=== PATIENT | female | born 1985 | race Caucasian/White ===

== ENCOUNTER 2018-03-07 12:53 | Emergency (ER) | payer MEDICAID ==
[~2018-03-07 12:53] MED LIST: DOXY-1 PO; HYDR-385 PO; HYDR-4309 PO; MECL25TA9 PO; METR-160 PO; ONDA4TAB PO; PANT40TA65 PO; PREN-123 PO; PROM-110 PO; SUCR1TAB85 PO
--- NOTE | 2018-03-07 13:02 | ER Report ---
History and Physical Time Seen By MD: 12:56 HPI/ROS CHIEF COMPLAINT: ear ache, muscle aches HISTORY OF PRESENT ILLNESS: This is a 32 year old female. She is having severe ear ache. Started yesterday. Has a sore throat as well. Muscle aches and pains. No shortness of breath, but has had some cough. Fevers and chills. Not short of breath. No chest pain. Having some nausea and an episode of vomiting. No problem with bowel and bladder. Allergies: Coded Allergies: Penicillins (Verified Allergy, Unknown, HIVES, 01/25/17) Home Meds Active Scripts Ondansetron (ZOFRAN ODT) 4 Mg Tab.rapdis, 4 MG PO Q6H Y for NAUSEA/VOMITING, # 20 TAB.KELLEY 0 Refills Prov:UMER VILLEGAS MD 03/07/18 Ketorolac Tromethamine (KETOROLAC TROMETHAMINE) 10 Mg Tab, 10 MG PO Q6H Y for PAIN, #12 TAB 0 Refills Prov:UMER VILLEGAS MD 03/07/18 Azithromycin (ZITHROMAX) 250 Mg Tablet, 0 PO QDAY, #6 TAB 0 Refills Take 2 tablets today, then one daily for 4 more days. Prov:UMER VILLEGAS MD 03/07/18 Discontinued Scripts Metronidazole (METRONIDAZOLE) 500 Mg Tablet, 500 MG PO BID, #14 TAB Prov:FELICIA OLSEN PA-C 01/25/17 Doxycycline Hyclate (VIBRAMYCIN) 100 Mg Capsule, 100 MG PO BID, #20 CAPSULE Prov:FELICIA OLSEN PA-C 01/25/17 Hydrocodone Bit/Acetaminophen (HYDROCODON-ACETAMINOPHEN 5-325) 1 Each Tablet, 1- 2 EACH PO Q6H for PAIN, #20 TAB Prov:FELICIA OLSEN PA-C 01/25/17 Reviewed Nurses Notes: Yes Hx Smoking: Yes (1/2PPD) Smoking Status: Current: Some Days Smoker Exposure to Second Hand Smoke?: Yes Hx Substance Use Disorder: No Hx Alcohol Use: No Constitutional Vital Sign - Last 24 Hours 03/07/18 03/07/18 12:57 14:00 Temp 99.6 98.9 Pulse 89 Resp 18 16 B/P (MAP) 112/68 104/74 (84) Pulse Ox 96 96 O2 Delivery Room Air Room Air Physical Exam General Appearance: The patient is alert. No acute distress. Eyes: Pupils are equal, round. No pallor, injection or icterus. ENT: Mucous membranes are moist. Normal oral mucosa. Posterior oropharynx with erythema and exudates. TM red and bulging on the left. Red and injection on the right TM without bulging. Neck: Supple and non tender. Respiratory: Lungs are clear to auscultation. Cardiovascular: Regular rate and rhythm. No murmurs, gallops or rubs. Normal capillary refill. Gastrointestinal: Soft and non-tender. Nondistended. Normal active bowel sounds. Neurological: Alert and oriented x3. Skin: Warm and dry. No rashes. DIFFERENTIAL DIAGNOSIS: After history and physical exam, differential diagnosis was considered for a patient with earache and sore throat, seems to be coming from the left ear. Testing for strep and will give some Zofran and Toradol. Medical Decision Making Data Points Laboratory Hematology Test 03/07/18 12:55 Group A Streptococcus Screen Negative (NEGATIVE) Chemistry Test 03/07/18 12:55 Group A Streptococcus Screen Negative (NEGATIVE) ED Course/Re-evaluation ED Course Zofran helped nausea, Toradol helped pain. Azithromycin prescribed. Decision to Disposition Date: Mar 07, 2018 Decision to Disposition Time: 14:01 Depart Departure Latest Vital Signs Vital Signs Date Time Temp Pulse Resp B/P (MAP) Pulse Ox O2 Delivery O2 Flow Rate FiO2 03/07/18 14:00 98.9 16 104/74 (84) 96 Room Air 03/07/18 12:57 89 Impression: Primary Impression: Otitis media Condition: Improved Disposition: HOME OR SELF-CARE New Scripts Ondansetron (ZOFRAN ODT) 4 Mg Tab.rapdis 4 MG PO Q6H Y for NAUSEA/VOMITING, #20 TAB.KELLEY 0 Refills Prov: UMER VILLEGAS MD 03/07/18 Ketorolac Tromethamine (KETOROLAC TROMETHAMINE) 10 Mg Tab 10 MG PO Q6H Y for PAIN, #12 TAB 0 Refills Prov: UMER VILLEGAS MD 03/07/18 Azithromycin (ZITHROMAX) 250 Mg Tablet 0 PO QDAY, #6 TAB 0 Refills Take 2 tablets today, then one daily for 4 more days. Prov: UMER VILLEGAS MD 03/07/18 Patient Instructions: Otitis Media (ED) Additional Instructions: Azithromycin 250mg, take 2 tablets today, then one daily for 4 more days. Zofran 4mg, one every 6 hours as needed for nausea. Toradol 10mg, one every 6 hours as needed for pain. Problem Qualifiers Primary Impression: Otitis media Otitis media type: suppurative Chronicity: acute Laterality: left Recurrence: not specified as recurrent Spontaneous tympanic membrane rupture: without spontaneous rupture Qualified Codes: H66.002 - Acute suppurative otitis media without spontaneous rupture of ear drum, left ear UMER VILLEGAS MD Mar 07, 2018 13:02
[2018-03-07] MEDS ORDERED: ONDANSETRON 4 MG ODT TABDP SL ONE (13:05)
[2018-03-07] MEDS ORDERED: KETOROLAC TROM 10MG TAB PO ONE (13:05)
[2018-03-07 14:00] VITALS: BP 104/74
[2018-03-07] MEDS ORDERED: ONDA4TAB PO (14:05)
[2018-03-07] MEDS ORDERED: KET10 PO (14:05)
[2018-03-07] MEDS ORDERED: AZIT-1 PO (14:05)
== END 2018-03-07 14:20 | disposition home or self-care (01) ==
LOC: ER 12:58
DX: H66.002 Acute suppurative otitis media without spontaneous rupture of ear drum, left ear (principal)
CPT/HCPCS: 87081; 87880; 99283; S0119

== ENCOUNTER → 2018-08-31 | Outpatient (CLI) | payer MEDICAID ==
[~2018-08-31] MED LIST changes: +AZIT-1 PO; -HYDR-4309 PO; +HYDR-653 PO; +KET10 PO; -METR-160 PO; +METR500T15 PO
--- NOTE | 2018-08-31 17:30 | RADIOLOGY IMAGING REPORT ---
FACILITY: PATIENT NAME: Mona Schultz : 1985 MR: [id number] V: [id number] EXAM DATE: ORDERING PHYSICIAN: KVNG ANSARI TECHNOLOGIST: Location: [facility] Patient: Mona Schultz : 1985 Visit/Account:[id number] Date of Sevice: 08/31/2018 3 views right ankle INDICATION: Pain after fall COMPARISON: None Available FINDINGS: No evidence of fracture, dislocation, or acute osseous abnormality of the right ankle. The ankle mortise is symmetric. There is no significant ankle joint effusion. There is no focal soft tissue abnormality. No evidence of radiopaque foreign body. IMPRESSION: 1. No acute osseous abnormality of the right ankle Report Dictated By: Lowell Mandujano at 08/31/2018 5:25 PM Report E-Signed By: Lowell Mandujano at 08/31/2018 5:25 PM WSN:[id number]
== END ==
LOC: RAD 15:23
PROVIDERS: ATTEND Nurse Practitioner Family
DX: S99.811A Other specified injuries of right ankle, initial encounter (principal)

== ENCOUNTER 2018-12-11 07:25 | Emergency (ER) | payer MEDICAID ==
--- NOTE | 2018-12-11 08:06 | ER Report ---
History and Physical Time Seen By MD: 08:06 Hx. of Stated Complaint: LEFT SIDED PAIN UNDERNEATH RIBS THAT STARTED ON HER WAY TO WORK. STATES SHE HAS HAD A RECENT COLD. DENIES NAUSEA VOMITTING AND DIARRHEA HPI/ROS CHIEF COMPLAINT: Left-sided pain HISTORY OF PRESENT ILLNESS: Patient is a 33-year-old female who states for the past 3-4 days she's had upper respiratory symptoms including runny nose cough congestion and generalized malaise. Today on the way to work she developed sudden onset sharp left-sided abdominal pain. The pain does radiate to the groin. It does seem worse with movement. She has never had similar symptoms. She denies any fevers or chills. She denies currently any nausea vomiting or diarrhea. REVIEW OF SYSTEMS: Constitutional: No fever, no chills. Eyes: No discharge. ENT: No sore throat. Cardiovascular: No chest pain, no palpitations. Respiratory: No cough, no shortness of breath. Gastrointestinal: Left Sided abdominal pain Genitourinary: No hematuria. Musculoskeletal: No back pain. Skin: No rashes. Neurological: No headache. Allergies: Coded Allergies: latex (Verified Allergy, Intermediate, 12/11/18) Penicillins (Verified Allergy, Unknown, HIVES, 12/11/18) Home Meds Active Scripts Ondansetron Hcl (ZOFRAN) 4 Mg Tablet, 4 MG PO Q8H for Nausea, #15 TAB 0 Refills Prov:CAT CEE MD 12/11/18 Oxycodone Hcl/Acetaminophen (PERCOCET 5-325 MG TABLET) 1 Each Tablet, 1 EACH PO Q4H for PAIN, #20 TAB 0 Refills Prov:CAT CEE MD 12/11/18 Discontinued Scripts Ondansetron (ZOFRAN ODT) 4 Mg Tab.rapdis, 4 MG PO Q6H PRN for NAUSEA/VOMITING, #20 TAB.KELLEY 0 Refills Prov:UMER VILLEGAS MD 03/07/18 Ketorolac Tromethamine (KETOROLAC TROMETHAMINE) 10 Mg Tab, 10 MG PO Q6H PRN for PAIN, #12 TAB 0 Refills Prov:UMER VILLEGAS MD 03/07/18 Azithromycin (ZITHROMAX) 250 Mg Tablet, 0 PO QDAY, #6 TAB 0 Refills Take 2 tablets today, then one daily for 4 more days. Prov:UMER VILLEGAS MD 03/07/18 Past Medical/Surgical History Noncontributory towards his chief complaint Hx Smoking: Yes (1/2PPD) Smoking Status: Current: Some Days Smoker Exposure to Second Hand Smoke?: Yes Hx Substance Use Disorder: No Hx Alcohol Use: No Constitutional Vital Sign - Last 24 Hours 12/11/18 12/11/18 12/11/18 12/11/18 07:28 07:30 08:00 09:00 Temp 97.8 Pulse 62 81 56 46 Resp 18 B/P (MAP) 114/83 114/83 (93) 110/65 (80) 109/69 (82) Pulse Ox 97 96 95 89 O2 Delivery Room Air Physical Exam General Appearance: The patient is alert, has no immediate need for airway protection and no signs of toxicity. Eyes: Pupils equal and round no pallor or injection. ENT, Mouth: Mucous membranes are moist. Respiratory: There are no retractions, lungs are clear to auscultation. Cardiovascular: Regular rate and rhythm. Gastrointestinal: Abdomen is tender in the left lower quadrant normal bowel sounds Neurological: Awake and alert Skin: Warm and dry, no rashes. Musculoskeletal: Neck is supple non tender. Extremities are nontender, nonswollen and have full range of motion. Medical Decision Making Data Points Result Diagram: 12/11/18 0732 12/11/18 0732 Laboratory Hematology Test 12/11/18 07:28 12/11/18 07:32 Urine Color Yellow Urine Clarity Slightly-cloudy Urine pH 5.0 pH (4.8-9.5) Urine Specific [place] 1.020 Urine Protein Negative mg/dL (NEGATIVE) Urine Glucose (UA) Negative mg/dL (NEGATIVE) Urine Ketones Negative mg/dL (NEGATIVE) Urine Blood Negative (NEGATIVE) Urine Nitrite Negative (NEGATIVE) Urine Bilirubin Negative (NEGATIVE) Urine Urobilinogen Negative mg/dL (0.2-1.9) Urine Leukocyte Esterase Trace (NEGATIVE) Urine RBC 2 /HPF (0-2/HPF) Urine WBC 3 /HPF (0-5/HPF) Urine Squamous Epithelial Cells Many /LPF (</=FEW) Urine Amorphous Crystals Few /HPF Urine Bacteria Few /HPF (NONE-FEW) Urine Hyaline Casts Few /LPF (NONE-FEW) Urine Mucus Few /HPF (NONE-FEW) Red Blood Count 5.43 M/uL (4.17-5.56) Mean Corpuscular Volume 84.4 fL (80.0-96.0) Mean Corpuscular Hemoglobin 28.0 pg (26.0-33.0) Mean Corpuscular Hemoglobin Concent 33.1 g/dL (32.0-36.0) Red Cell Distribution Width 14.1 % (11.5-14.5) Mean Platelet Volume 9.1 fL (7.2-11.1) Neutrophils (%) (Auto) 63.3 % (39.4-72.5) Lymphocytes (%) (Auto) 27.2 % (17.6-49.6) Monocytes (%) (Auto) 6.1 % (4.1-12.4) Eosinophils (%) (Auto) 3.0 % (0.4-6.7) Basophils (%) (Auto) 0.4 % (0.3-1.4) Nucleated RBC Relative Count (auto) 0.0 /100WBC Neutrophils # (Auto) 6.2 K/uL (2.0-7.4) Lymphocytes # (Auto) 2.7 K/uL (1.3-3.6) Monocytes # (Auto) 0.6 K/uL (0.3-1.0) Eosinophils # (Auto) 0.3 K/uL (0.0-0.5) Basophils # (Auto) 0.0 K/uL (0.0-0.1) Nucleated RBC Absolute Count (auto) 0.00 K/uL Urine HCG, Qualitative Negative (NEGATIVE) Sodium Level 139 mmol/L (137-145) Potassium Level 3.9 mmol/L (3.5-5.0) Chloride Level 107 mmol/L (98-107) Carbon Dioxide Level 23 mmol/L (22-31) Blood Urea Nitrogen 9 mg/dl (7-18) Creatinine 0.70 mg/dl (0.52-1.04) Glomerular Filtration Rate Calc > 60.0 Random Glucose 92 mg/dl (75-110) Calcium Level 9.1 mg/dl (8.4-10.2) Total Bilirubin 0.3 mg/dl (0.2-1.3) Aspartate Amino Transf (AST/SGOT) 21 U/L (0-35) Alanine Aminotransferase (ALT/SGPT) 21 U/L (0-56) Alkaline Phosphatase 55 U/L (0-126) Total Protein 7.8 g/dl (6.3-8.2) Albumin 4.4 g/dl (3.5-5.0) Amylase Level 78 U/L (0-110) Lipase 95 U/L (23-300) Helicobacter pylori IgG Antibody Negative (NEGATIVE) Chemistry Test 12/11/18 07:28 12/11/18 07:32 Urine Color Yellow Urine Clarity Slightly-cloudy Urine pH 5.0 pH (4.8-9.5) Urine Specific [place] 1.020 Urine Protein Negative mg/dL (NEGATIVE) Urine Glucose (UA) Negative mg/dL (NEGATIVE) Urine Ketones Negative mg/dL (NEGATIVE) Urine Blood Negative (NEGATIVE) Urine Nitrite Negative (NEGATIVE) Urine Bilirubin Negative (NEGATIVE) Urine Urobilinogen Negative mg/dL (0.2-1.9) Urine Leukocyte Esterase Trace (NEGATIVE) Urine RBC 2 /HPF (0-2/HPF) Urine WBC 3 /HPF (0-5/HPF) Urine Squamous Epithelial Cells Many /LPF (</=FEW) Urine Amorphous Crystals Few /HPF Urine Bacteria Few /HPF (NONE-FEW) Urine Hyaline Casts Few /LPF (NONE-FEW) Urine Mucus Few /HPF (NONE-FEW) White Blood Count 9.8 k/uL (4.5-11.0) Red Blood Count 5.43 M/uL (4.17-5.56) Hemoglobin 15.2 g/dL (12.0-16.0) Hematocrit 45.8 % (34.0-47.0) Mean Corpuscular Volume 84.4 fL (80.0-96.0) Mean Corpuscular Hemoglobin 28.0 pg (26.0-33.0) Mean Corpuscular Hemoglobin Concent 33.1 g/dL (32.0-36.0) Red Cell Distribution Width 14.1 % (11.5-14.5) Platelet Count 264 K/uL (150-450) Mean Platelet Volume 9.1 fL (7.2-11.1) Neutrophils (%) (Auto) 63.3 % (39.4-72.5) Lymphocytes (%) (Auto) 27.2 % (17.6-49.6) Monocytes (%) (Auto) 6.1 % (4.1-12.4) Eosinophils (%) (Auto) 3.0 % (0.4-6.7) Basophils (%) (Auto) 0.4 % (0.3-1.4) Nucleated RBC Relative Count (auto) 0.0 /100WBC Neutrophils # (Auto) 6.2 K/uL (2.0-7.4) Lymphocytes # (Auto) 2.7 K/uL (1.3-3.6) Monocytes # (Auto) 0.6 K/uL (0.3-1.0) Eosinophils # (Auto) 0.3 K/uL (0.0-0.5) Basophils # (Auto) 0.0 K/uL (0.0-0.1) Nucleated RBC Absolute Count (auto) 0.00 K/uL Urine HCG, Qualitative Negative (NEGATIVE) Glomerular Filtration Rate Calc > 60.0 Calcium Level 9.1 mg/dl (8.4-10.2) Total Bilirubin 0.3 mg/dl (0.2-1.3) Aspartate Amino Transf (AST/SGOT) 21 U/L (0-35) Alanine Aminotransferase (ALT/SGPT) 21 U/L (0-56) Alkaline Phosphatase 55 U/L (0-126) Total Protein 7.8 g/dl (6.3-8.2) Albumin 4.4 g/dl (3.5-5.0) Amylase Level 78 U/L (0-110) Lipase 95 U/L (23-300) Helicobacter pylori IgG Antibody Negative (NEGATIVE) Urinalysis Test 12/11/18 07:28 12/11/18 07:32 Urine Color Yellow Urine Clarity Slightly-cloudy Urine pH 5.0 pH (4.8-9.5) Urine Specific [place] 1.020 Urine Protein Negative mg/dL (NEGATIVE) Urine Glucose (UA) Negative mg/dL (NEGATIVE) Urine Ketones Negative mg/dL (NEGATIVE) Urine Blood Negative (NEGATIVE) Urine Nitrite Negative (NEGATIVE) Urine Bilirubin Negative (NEGATIVE) Urine Urobilinogen Negative mg/dL (0.2-1.9) Urine Leukocyte Esterase Trace (NEGATIVE) Urine RBC 2 /HPF (0-2/HPF) Urine WBC 3 /HPF (0-5/HPF) Urine Squamous Epithelial Cells Many /LPF (</=FEW) Urine Amorphous Crystals Few /HPF Urine Bacteria Few /HPF (NONE-FEW) Urine Hyaline Casts Few /LPF (NONE-FEW) Urine Mucus Few /HPF (NONE-FEW) Urine HCG, Qualitative Negative (NEGATIVE) EKG/Imaging Monitor Interpretation: Normal Sinus Rhythm Imaging FACILITY: [facility] PATIENT NAME: Mnoa Schultz : 1985 MR: [id number] V: [id number] EXAM DATE: ORDERING PHYSICIAN: CAT CEE TECHNOLOGIST: Location: [facility] Patient: Mona Schultz : 1985 Visit/Account:[id number] Date of Sevice: 12/11/2018 CT ABDOMEN PELVIS W/ CON HISTORY: Left-sided abdominal pain TECHNIQUE: Axial images were obtained through the abdomen and pelvis with intravenous contrast . One of the following dose optimization techniques was utilized in the performance of this exam: automated exposure control; adjustment of the mA and/or kv according to patient size; or use of iterative reconstruction technique. Specific details can be referenced in the facility's radiology CT exam operational policy. CONTRAST: 75 cc of Isovue-370 COMPARISON: None. FINDINGS: Visualized lung bases: Negative. Hepatobiliary: Negative. Spleen: Negative. Adrenals: Negative. Pancreas: Negative. Kidneys/ureters/bladder: Negative. Bowel/peritoneum/mesentery: Normal appendix. No bowel obstruction or free air. Small amount of pelvic free fluid. Vessels: Negative. Lymph nodes: Negative. Pelvic genitourinary: 2.5 x 2.7 x 1.7 cm cyst within the left ovary with peripheral enhancement, likely a recently ruptured follicle. Bones/body wall: Negative. Other findings: None significant IMPRESSION: 1. Findings consistent with a 2.7 cm recently ruptured left ovarian follicle with a small amount of pelvic free fluid. 2. Normal appendix. Report Dictated By: Ludin Banks MD at 12/11/2018 8:52 AM Report E-Signed By: Ludin Banks MD at 12/11/2018 9:03 AM WSN:[id number] ED Course/Re-evaluation ED Course 12/11/2018 8:35:51 am bedside ultrasound is negative for left sided hydronephrosis. Plan at this time will be abdominal workup including CT scan with IV contrast. Patient currently not nauseous, we'll give IV fluids and also IV Toradol for pain. Decision to Disposition Date: Dec 11, 2018 Decision to Disposition Time: 09:13 Depart Departure Latest Vital Signs Vital Signs Date Time Temp Pulse Resp B/P (MAP) Pulse Ox O2 Delivery O2 Flow Rate FiO2 12/11/18 09:00 46 109/69 (82) 89 12/11/18 07:28 97.8 18 Room Air Impression: Primary Impression: Ovarian cyst Condition: Improved Disposition: HOME OR SELF-CARE New Scripts Ondansetron Hcl (ZOFRAN) 4 Mg Tablet 4 MG PO Q8H for Nausea, #15 TAB 0 Refills Prov: CAT CEE MD 12/11/18 Oxycodone Hcl/Acetaminophen (PERCOCET 5-325 MG TABLET) 1 Each Tablet 1 EACH PO Q4H for PAIN, #20 TAB 0 Refills Prov: CAT CEE MD 12/11/18 Departure Forms: ER Transition Record, Medications Reconciliation, Off Work/School Form, School or Work Release?: Work Number of days to be released: 2 Patient Portal Information Patient Instructions: Ovarian Cyst (DC) Problem Qualifiers Primary Impression: Ovarian cyst Laterality: left Qualified Codes: N83.202 - Unspecified ovarian cyst, left side CAT CEE MD Dec 11, 2018 08:06
[2018-12-11] MEDS ORDERED: NS(*) 0.9% 1000 ML BAG 1,000 ML IV ONE (08:16)
[2018-12-11] MEDS ORDERED: KETOROLAC 30 MG/ML VIAL IVP ONE (08:20)
[2018-12-11 08:24] LABS: PLATELET COUNT, AUTOMATED 264 K/uL (150-450)
[2018-12-11] MEDS ORDERED: IOPAMIDOL 76% 150 ML INFUS BTL 150 ML ONE (08:41)
[2018-12-11 09:00] VITALS: BP 109/69
--- NOTE | 2018-12-11 09:08 | RADIOLOGY IMAGING REPORT ---
FACILITY: [facility] PATIENT NAME: Mona Schultz : 1985 MR: [id number] V: [id number] EXAM DATE: ORDERING PHYSICIAN: CAT CEE TECHNOLOGIST: [place] [facility] [place]a Schultz : 1985 Visit/Account:[id number] Date of Sevice: 12/11/2018 CT ABDOMEN PELVIS W/ CON HISTORY: Left-sided abdominal pain TECHNIQUE: Axial images were obtained through the abdomen and pelvis with intravenous contrast . One of the following dose optimization techniques was utilized in the performance of this exam: automate d exposure control; adjustment of the mA and/or kv according to patient size; or use of iterative rec onstruction technique. Specific details can be referenced in the facility's radiology CT exam operati onal policy. CONTRAST: 75 cc of Isovue-370 COMPARISON: None. FINDINGS: Visualized lung bases: Negative. Hepatobiliary: Negative. Spleen: Negative. Adrenals: Negative. Pancreas: Negative. Kidneys/ureters/bladder: Negative. Bowel/peritoneum/mesentery: Normal appendix. No bowel obstruction or free air. Small amount of pelvi c free fluid. Vessels: Negative. Lymph nodes: Negative. Pelvic genitourinary: 2.5 x 2.7 x 1.7 cm cyst within the left ovary with peripheral enhancement, like ly a recently ruptured follicle. Bones/body wall: Negative. Other findings: None significant IMPRESSION: 1. Findings consistent with a 2.7 cm recently ruptured left ovarian follicle with a small amount of p elvic free fluid. 2. Normal appendix. Report Dictated By: Ludin Banks MD at 12/11/2018 8:52 AM Report E-Signed By: Ludin Banks MD at 12/11/2018 9:03 AM WSN:[id number]
[2018-12-11] MEDS ORDERED: OXYC-865 PO (09:14)
[2018-12-11] MEDS ORDERED: ONDA4TAB97 PO (09:14)
== END 2018-12-11 09:18 | disposition home or self-care (01) ==
LOC: ER 08:07
DX: N83.202 Unspecified ovarian cyst, left side (principal)
CPT/HCPCS: 74177; 81001; 81025; 82150; 83690; 85025; 86677; 96361; 96374; 99284; J1885; J7030; Q9967; 82040; 82247; 82310; 82374; 82435; 82565; 82947; 84075; 84132; 84155; 84295; 84450; 84460; 84520